=== PATIENT | female | born 1960 | race Caucasian/White ===

== ENCOUNTER → 2023-09-02 13:09 | Outpatient (REF) | payer MEDICARE, OTHER, SELFPAY | LOC: HWRAD 13:09 | PROVIDERS: ATTENDING PHYSICIAN Internal Medicine; FAMILY PHYSICIAN Student in an Organized Health Care Education/Training Program | DX: M81.0 Age-related osteoporosis without current pathological fracture (principal) | CPT/HCPCS: 77080 ==

== ENCOUNTER → 2023-10-02 15:51 | Outpatient (REF) | payer MEDICARE, OTHER, SELFPAY | LOC: HWRAD 15:51 | PROVIDERS: ATTENDING PHYSICIAN Physician Assistant Medical; FAMILY PHYSICIAN Student in an Organized Health Care Education/Training Program | DX: R07.81 Pleurodynia (principal) | CPT/HCPCS: 71101 ==

== ENCOUNTER 2024-06-17 23:11 | Emergency (ER) | payer MEDICARE, OTHER, SELFPAY ==
[2024-06-17 23:14] VITALS: BP 138/66
[2024-06-18 01:00] VITALS: BP 111/65
[2024-06-18] MEDS: OFIRMEV 100 IV (01:20)
[2024-06-18] MEDS: ZOFRAN 4 MG IV (01:20)
[2024-06-18] MEDS: NSS 1000 IV (01:20)
[2024-06-18 01:25] LABS: % Basophils 0.3 % (0-2); % Immature Granulocytes 0.9 % (0-0.5); % Lymphocytes 2.9 % (20.5-51.1); % Monocytes 4.4 % (1.7-9.3); % Neutrophils 89.5 % (42.2-75.2); Absolute Basophils 0.1 10^3/uL (0-0.2); Absolute Eosinophils 0.4 10^3/uL (0-0.7); Absolute Immature Granulocytes 0.2 10^3/uL (0-0.05); Absolute Lymphocytes 0.5 10^3/uL (1.2-3.4); Absolute Monocytes 0.8 10^3/uL (0.1-0.6); Absolute Neutrophils 15.6 10^3/uL (1.4-6.5); Hematocrit 42.7 % (37.0-47.0); Mean Corp Hgb Conc. 32.8 g/dL (33.0-37.0); Mean Corpuscular Hgb 30.6 pg (27.0-31.0); Mean Corpuscular Volume 93.2 fL (81.0-99.0); Mean Platelet Volume 9.1 fL (7.4-10.4); Nucleated Red Blood Cells % 0 %; Platelet Count 351 10^3/uL (130-400); Red Blood Cell Count 4.58 10^6/uL (4.20-5.40); Red Cell Dist. Width 13.1 % (11.5-14.5); White Blood Cell Count 17.5 10^3/uL (4.8-10.8)
[2024-06-18 01:37] LABS: ALT (SGPT) 39 U/L (0-35); AST (SGOT) 33 U/L (14-36); Albumin 4.7 g/dl (3.5-5.0); Alkaline Phosphatase 94 U/L (38-126); Blood Urea Nitrogen 25 mg/dl (7-17); Calcium 9.5 mg/dl (8.4-10.2); Carbon Dioxide 20 mmol/L (22-30); Chloride 103 mmol/L (98-107); Glucose 127 mg/dl (70-99); Potassium 4.7 mmol/L (3.5-5.1); Sodium 138 mmol/L (135-145); Total Bilirubin 0.7 mg/dl (0.2-1.3); Total Protein 7.9 g/dl (6.3-8.2); eGFR > 60.00
--- NOTE | 2024-06-18 01:39 | ED.GENMED ---
History of Present Illness
General
Chief Complaint: Abdominal Pain
Source: patient
Exam Limitations: none
Time Seen by Provider: 06/18/24 01:08
History of Present Illness
History of Present Illness:
This is a 64 year old female that comes in with c/o vomiting. State that she started vomiting yesterday morning at 8pm. State that she has vomited all day and has also had diarrhea. State that she recently had IVIG and had a reaction. Patient was
then place on Steroids. State that she also had a Bronch last week and was place on Augmentin as her fluid came back with Streptococcus Pneumonia, moderate growth. States that she had a low grade fever of 99.4 with chills, some SOB, headache and
lightheadedness. Denies any chest pain, urinary burning.
Past History
Past History
ED Past Medical History: HTN and Other (PNA, Interstitial lung disease, BBB, Diverticulitis, Hypoglycemia. Auto immune disorder)
ED Past Surgical History: Bowel resection (Colon resection, ) and Orthopedic (Right hip replacement)
Social History
Tobacco: Former smoker
Alcohol: Occasional
Personal:
Living: with family
Review of Systems
Review of Systems
All Other Systems: ROS reviewed and negative except as documented in HPI and ROS
Constitutional: Reports fever and chills
EENT: Reports no symptoms
Respiratory: Reports trouble breathing; Denies cough
Cardiac: Denies chest pain
ABD/GI: Reports abdominal pain, nausea, vomiting and diarrhea
: Reports no symptoms; Denies dysuria, frequency or urgency
Musculoskeletal: Reports no symptoms
Skin: Reports no symptoms
Neurological: Reports headache and other (Lightheadedness); Denies dizzy
Psychiatric: Reports no symptoms
Phy Exam
General Physical Exam
General Presentation: mild distress
General age: appears stated age
General Skin: warm and dry
General Habitus: normal
General Mental: alert
General Hydration: dry mucous membranes
ENT Exam
ENT Exam: TM's normal, pharynx normal and neck supple
Eye Exam
Eye Exam: EOMI
Cardiovascular Exam
Cardiovascular Exam: regular rate/rhythm, no edema, no murmur and normal peripheral pulses
Pulmonary Exam
Pulmonary Exam: lungs clear, no respiratory distress, no rales, chest non tender, no crackles, no rhonchi, no wheezing and no cough
Gastrointestinal Exam
Gastrointestinal Exam: normal bowel sounds, soft, no organomegaly, no pulsatile mass, non distended and tender (Slight epigastric tenderness)
Musculoskeletal Exam
Musculoskeletal Exam: full ROM and no edema
Skin Exam
Skin Exam: normal color, warm/dry, no rash and no petechia
Psychiatric Exam
Psychiatric Exam: normal mood/affect
Course
Orders/Labs/Results
Orders:
Orders
06/18/24 01:12
IV Insert/Care/Rem.- Treatment PRN
06/18/24 01:13
Complete Blood Count/With Diff Urgent
Comprehensive Metabolic Panel Urgent
Lipase Urgent
06/18/24 01:16
0.9% Sodium Chloride 1000 ml [Nss] 1,000 ml IV BOLUS
Acetaminophen 1000MG/100Ml [Ofirmev] 1,000 mg in 100 ml IV ONCE
Acetaminophen IV Indication:: ED Narcotic Naive Pt-ONCE
Ondansetron Injectable [Zofran] 4 mg IV NOW STA
06/18/24 01:17
Dicyclomine [Bentyl] 10 mg PO NOW STA
06/18/24 01:18
Acetaminophen 1000MG/100Ml [Ofirmev] 1,000 mg in 100 ml .ROUTE .STK-MED
Ondansetron Injectable [Zofran] 4 mg .ROUTE .STK-MED ONE
06/18/24 01:30
Lactic Acid Urgent
06/18/24 01:42
CR Chest - 2 Views Urgent
Comment:
Reason For Exam: SOB
06/18/24 02:22
Electrocardiogram (*1) Urgent
Reason for Study: QTc Monitoring
EKG- Treatment ONCE
06/18/24 02:37
Azithromycin [Zithromax] 500 mg PO NOW STA
Ketorolac [Toradol] 30 mg IV NOW STA
Abnormal Lab Results
06/18/24
01:13
WBC 17.5 H 10^3/uL
(4.8-10.8)
MCHC 32.8 L g/dL
(33.0-37.0)
Abs Immat Gran (auto) 0.2 H 10^3/uL
(0-0.05)
Absolute Neuts (auto) 15.6 H 10^3/uL
(1.4-6.5)
Absolute Lymphs (auto) 0.5 L 10^3/uL
(1.2-3.4)
Absolute Monos (auto) 0.8 H 10^3/uL
(0.1-0.6)
Immature Gran % 0.9 H %
(0-0.5)
Neutrophils % 89.5 H %
(42.2-75.2)
Lymphocytes % 2.9 L %
(20.5-51.1)
Carbon Dioxide 20 L mmol/L
(22-30)
BUN 25 H mg/dl
(7-17)
Glucose 127 H mg/dl
(70-99)
ALT 39 H U/L
(0-35)
06/18/24 01:13
06/18/24 01:13
Leukocytosis (PATIENT HAS BEEN ON STEROIDS, ALSO DIAGNOSED WITH STREPTOCOCCAL PNEUMONIA AFTER HER BRONC, Carbon dioxide slightly low. Dehydration. hyperglycemia, ALT slightly elevated. Lipase normal at 50.
Vital Signs
Initial and Last Documented VS:
Initial Vital Signs
Temp Pulse Resp BP Pulse Ox
98.6 F 85 18 138/66 99
12/12/24 23:14 06/17/24 23:14 06/17/24 23:14 06/17/24 23:14 06/17/24 23:14
Last Documented Vital Signs
Temp Pulse Resp BP Pulse Ox
99.4 F 56 14 106/45 96
06/18/24 01:39 06/18/24 03:00 06/18/24 03:00 06/18/24 03:18 06/18/24 03:00
MDM/Problems Addressed
Differential Diagnosis Includes:
Viral GI syndrome.
MDM/Problems Addressed:
This is a 64 year old female that comes in with c/o vomiting and diarrhea. States that this started at 8am today.
Will get labs, Give IV fluids. Medicate for nausea/vomiting, Tylenol for headache and Bentyl for the cramping.
Back into see patient. Patient states that the nausea is better and she has not had any diarrhea since she was here. States that she still has a headache. Will give IV Toradol. Explained that she should most likely be on Zithromax due to the
diagnosis of Streptococcus Pneumoniae with the Augmentin. Will add this to patient medication list.
Into see patient and patient is feeling better. State that she will go home. Will return with any other concerns.
Chronic conditions affecting care: Previous abdomnial surgery
Acute Exacerbation and/or Progression of Chronic Illness: Previous abdomnial surgery
*Pulse Oximetry
Patient hypoxic: no
*EKG
Interpreted by ED Provider?: Yes
Heart Rate: 53
Rate: bradycardiac
Rhythm: sinus
[place]: normal axis
Interval: normal interval
QRS Pattern: left bundle branch block
Ischemia: no ischemia
*[employer] Interpretation
Rate: normal
Heart Rate: 76
*Critical Care Note
Total Time (30-74mins, 75-104mins- exclusive of procedures): Not Applicable
ED Attending Note
-
Portions of this chart may have been created with voice recognition software.� Occasional wrong word or��sound alike� substitutions may have occurred due to the inherent limitations of voice recognition software.
Discharge Plan
Departure
Patient Disposition: Home (Routine Discharge)
Date of Disposition: 06/18/24
Time of Disposition: 03:07
Patient with high blood pressure during this ER visit?: No
Condition: Good
Covid-19: Not Applicable
Discharge Problem:
Nausea & vomiting, Diarrhea
Instructions: Diarrhea in teens and adults, Nausea and Vomiting, Adult (DC)
Prescriptions:
New
azithromycin [Zithromax] 250 mg tablet
250 mg PO DAILY Qty: 4 0RF
ondansetron 4 mg tablet,disintegrating
4 mg PO Q8H PRN (Reason: nausea and vomiting) Qty: 10 0RF
Referrals:
UNKNOWN - PT NOT,INTERVIEWE [Family Provider] -
Activity Restrictions/Additional Instructions:
As discussed, your blood work shows that our white blood cell count is elevated. This can happen due to the steroids. You are also dehydrated. You have been given IV fluids here and medicated to the Nausea and vomiting. Your chest x-ray shows that
there haziness at the bases. You have had Zithromax added to your medication as this will help with the streptoccocal Pneumonia. Please stay on a clear liquid diet for the next 24 hours and increase your diet as tolerated. Follow up with the family
doctor for recheck. IF YOU HAVE ABD PAIN, VOMITING THAT IS NOT CONTROLLED OR YOU HAVE ANY OTHER CONCERNS PLEASE RETURN TO THE EMERGENCY ROOM.
Interventions
Interventions:
*General Assessment Last Done: 06/18/24 01:40
*Neglect/Abuse Screening Last Done: 06/18/24 01:42
*Nursing Disposition Last Done: 06/18/24 03:18
NA-Fvhffd-Rfqtuismsy Assessment Last Done: 06/18/24 01:40
Discharge Date and Time
Discharge Date/Time: 06/18/24 03:19
Print Language: CYMRAES
[2024-06-18 02:00] VITALS: BP 113/46
[2024-06-18 02:00] LABS: Lipase 50 U/L (23-300)
[2024-06-18 02:11] LABS: Lactic Acid 1.1 mmol/L (0.7-2.0)
[2024-06-18] MEDS: BENTYL 10 MG PO (02:19)
[2024-06-18] MEDS: TORADOL 30 MG IV (02:42)
[2024-06-18 02:49] VITALS: BP 102/39
[2024-06-18] MEDS: ZITHROMAX 500 MG PO (02:51)
[2024-06-18 03:18] VITALS: BP 106/45
== END 2024-06-18 03:19 | disposition home or self-care (01) ==
LOC: EMR 23:11
PROVIDERS: Clinical Nurse Specialist Family Health; EMERGENCY PHYSICIAN Emergency Medicine
DX: R10.9 Unspecified abdominal pain (principal); R11.2 Nausea with vomiting, unspecified; R19.7 Diarrhea, unspecified; E86.0 Dehydration; I10 Essential (primary) hypertension; J84.9 Interstitial pulmonary disease, unspecified; I45.4 Nonspecific intraventricular block; E16.2 Hypoglycemia, unspecified; D89.89 Other specified disorders involving the immune mechanism, not elsewhere classified; Z87.891 Personal history of nicotine dependence
CPT/HCPCS: 99283; 96374; 96375; 96361; 71046; 80053; 83605; 83690; 85025; 93005